=== PATIENT | female | born 1980 | race Caucasian/White ===

== ENCOUNTER 2016-11-23 12:08 | Emergency (ER) | payer SELFPAY ==
[~2016-11-23] VITALS: Ht 152.4 cm; Wt 57.0 kg
[~2016-11-23 12:08] MED LIST: ACYC1CAP16 PO; GABA100C4 PO; PROZ20CA11 PO; VIST25CA PO; ZOLP5TAB3 PO
[2016-11-23 12:13] VITALS: BP 150/93; PULSE 96; RESP 18; TEMP 98; O2SAT 99
[2016-11-23] MEDS ORDERED: SODIUM CHLOR 0.9% 1000 ML INJ 1,000 ML IV SCH ×2 (12:25)
--- NOTE | 2016-11-23 12:29 | PD ---
HPI Chief Complaint: Abdominal Pain Time Seen by Provider: 12:24 Travel History International Travel<30 days: No Contact w/Intl Traveler<30days: No Traveled to known affect area: No History of Present Illness HPI This 36-year-old female says she is having abdominal pain since yesterday. The pain she is having is located primarily in the right upper quadrant and the mid abdomen. She's been having vomiting. She's been having diarrhea. She says she always has diarrhea and worsening usual last day. She has a history of Crohn's disease for 7 years. She was diagnosed in [place]. She is not on any medications for the Crohn's disease. He also has a history of fibromyalgia. She has had a cholecystectomy and a hysterectomy PFS Past Medical History Depression: Yes Cancer: Yes (ENDOMETRIOSIS) Cardiovascular Problems: No Diminished Hearing: No Fibromyalgia: Yes (Dx 2014) Gastrointestinal Disorders: Yes GERD: Yes Genitourinary: Yes Headaches: Yes Immune Disorder: Yes (CHRONS) Kidney Stones: Yes Musculoskeletal: No Neurologic: Yes Respiratory: No Migraines: Yes Ulcer: Yes ?: Not Past Surgical History Abdominal Surgery: Yes (GALLBLADDER) Cholecystectomy: Yes Gynecologic Surgery: Yes (HYSTERECTOMY) Hysterectomy: Yes Oral Surgery: Yes (WISDOM TEETH) Other Surgery: Yes (CYST REMOVED RIGHT BREAST VIA LASER) Social History Alcohol Use: Yes (1 glass of Vodks per night x 1 year) Tobacco Use: Yes (08/16 PPD) Substance Use: No Allergies-Medications (Allergen,Severity, Reaction): Coded Allergies: No Known Allergies (Unverified , 11/23/16) Reported Meds & Prescriptions Reported Meds & Active Scripts Active No Active Prescriptions or Reported Medications Review of Systems General / Constitutional: No: Fever, Chills Eyes: No: Diploplia, Blurred Vision HENT: No: Headaches Cardiovascular: No: Chest Pain or Discomfort, Palpitations Respiratory: No: Cough, Shortness of Breath Gastrointestinal: Positive: Nausea, Vomiting, Diarrhea, Abdominal Pain Genitourinary: No: Frequency, Dysuria Musculoskeletal: No: Myalgias, Arthralgias Skin: No Rash Neurologic: No: Weakness, Dizziness Hematologic/Lymphatic: No: Easy Bruising Physical Exam Narrative GENERAL: Well-developed female SKIN: Focused skin assessment warm/dry. HEAD: Atraumatic. Normocephalic. EYES: Pupils equal and round. No scleral icterus. No injection or drainage. ENT: No nasal bleeding or discharge. Mucous membranes pink and moist. NECK: Trachea midline. No JVD. CARDIOVASCULAR: Regular rate and rhythm. No murmur appreciated. RESPIRATORY: No accessory muscle use. Clear to auscultation. Breath sounds equal bilaterally. GASTROINTESTINAL: Abdomen soft, there is mild distention. Bowel sounds present. No abnormal masses. No guarding or rigidity MUSCULOSKELETAL: No obvious deformities. No clubbing. No cyanosis. No edema. NEUROLOGICAL: Awake and alert. No obvious cranial nerve deficits. Motor grossly within normal limits. Normal speech. PSYCHIATRIC: Appropriate mood and affect; insight and judgment normal. Data Data Last Documented VS Vital Signs Date Time Temp Pulse Resp B/P Pulse Ox O2 Delivery O2 Flow Rate FiO2 11/23/16 12:35 16 98 Room Air 11/23/16 12:13 98.0 96 150/93 Orders Complete Blood Count With Diff (11/23/16 12:25) Comprehensive Metabolic Panel (11/23/16 12:25) Lipase (11/23/16 12:25) Urinalysis - C+S If Indicated (11/23/16 12:25) Ct Abd/Pel W Iv Contrast(Rout) (11/23/16 12:25) Iv Access Insert/Monitor (11/23/16 12:25) Ecg Monitoring (11/23/16 12:25) Oximetry (11/23/16 12:25) Hydromorphone Pf Inj (Dilaudid Pf Inj) (11/23/16 12:30) Ondansetron Inj (Zofran Inj) (11/23/16 12:30) Sodium Chlor 0.9% 1000 Ml Inj (Ns 1000 M (11/23/16 12:25) Sodium Chlor 0.9% 1000 Ml Inj (Ns 1000 M (11/23/16 12:25) Sodium Chloride 0.9% Flush (Ns Flush) (11/23/16 12:30) Iohexol 350 Inj (Omnipaque 350 Inj) (11/23/16 13:33) Labs Laboratory Tests Test 11/23/16 12:35 White Blood Count 5.6 TH/MM3 Red Blood Count 4.60 MIL/MM3 Hemoglobin 14.0 GM/DL Hematocrit 40.0 % Mean Corpuscular Volume 87.1 FL Mean Corpuscular Hemoglobin 30.4 PG Mean Corpuscular Hemoglobin 34.9 % Concent Red Cell Distribution Width 14.3 % Platelet Count 294 TH/MM3 Mean Platelet Volume 7.9 FL Neutrophils (%) (Auto) 71.3 % Lymphocytes (%) (Auto) 17.9 % Monocytes (%) (Auto) 8.8 % Eosinophils (%) (Auto) 1.6 % Basophils (%) (Auto) 0.4 % Neutrophils # (Auto) 4.0 TH/MM3 Lymphocytes # (Auto) 1.0 TH/MM3 Monocytes # (Auto) 0.5 TH/MM3 Eosinophils # (Auto) 0.1 TH/MM3 Basophils # (Auto) 0.0 TH/MM3 CBC Comment DIFF FINAL Differential Comment Urine Collection Type CLEAN CATCH Urine Color YELLOW Urine Turbidity SLIGHT Urine pH 5.5 Urine Specific Mcneil 1.033 Urine Protein TRACE mg/dL Urine Glucose (UA) NEG mg/dL Urine Ketones 40 mg/dL Urine Occult Blood NEG Urine Nitrite NEG Urine Bilirubin NEG Urine Leukocyte Esterase NEG Urine Squamous Epithelial > 8 /hpf Cells Urine Amorphous Sediment LARGE Microscopic Urinalysis Comment CULT NOT INDICATED Urine Collection Time 1235 Sodium Level 139 MEQ/L Potassium Level 4.0 MEQ/L Chloride Level 106 MEQ/L Carbon Dioxide Level 20.3 MEQ/L Anion Gap 13 MEQ/L Blood Urea Nitrogen 23 MG/DL Creatinine 0.74 MG/DL Estimat Glomerular Filtration 88 ML/MIN Rate Random Glucose 115 MG/DL Calcium Level 8.5 MG/DL Total Bilirubin 0.3 MG/DL Aspartate Amino Transf 106 U/L (AST/SGOT) Alanine Aminotransferase 145 U/L (ALT/SGPT) Alkaline Phosphatase 84 U/L Total Protein 7.3 GM/DL Albumin 3.9 GM/DL Lipase 122 U/L [facility] Medical Decision Making Medical Screen Exam Complete: Yes Emergency Medical Condition: Yes Medical Record Reviewed: Yes Differential Diagnosis Differential includes Crohn's disease, bowel obstruction, Narrative Course White count is normal. CT scan of the abdomen and pelvis shows no evidence of active inflammatory disease. There is hepatic steatosis. Impression is flare of Crohn's disease. She'll be given Solu-Medrol now and prescription for Medrol Dosepak. Diagnosis Primary Impression: Exacerbation of Crohn's disease Qualified Code: K50.90 - Exacerbation of Crohn's disease, without complications Scripts Ondansetron Odt (Zofran Odt)4 Mg Tab4 Mg SL Q6HR PRN (Nausea/Vomiting) #10 TAB Ref 0 Prov:Norman Ruggiero MD 11/23/16 Hydrocodone-Acetaminophen (Lortab)7.5-325 Mg Tab1 Tab PO Q4H PRN (PAIN) #30 TAB Ref 0 Prov:Norman Ruggiero MD 11/23/16 Methylprednisolone Dosepak (Medrol Dosepak)4 Mg Dspk4 Mg PO DIRECTED #1 DSPK Ref 0 Per Pharmacist direction Prov:Norman Ruggiero MD 11/23/16 Disposition: 01 DISCHARGE HOME Condition: Stable Norman Ruggiero MD Nov 23, 2016 12:29
[2016-11-23] MEDS ORDERED: HYDROmorphone HCL PF 2 MG/ML VIAL IVS ONE (12:30)
[2016-11-23] MEDS ORDERED: ONDANSETRON HCL 4 MG/2 ML VIAL IVP ONE (12:30)
[2016-11-23] MEDS ORDERED: SODIUM CHLORIDE 0.9% FLUSH 10 ML FLUSH IV FLUSH PRN (12:30)
[2016-11-23 12:35] VITALS: RESP 16; O2SAT 98
[2016-11-23 12:58] LABS: BASOPHIL % 0.4 % (0.0-2.0); EOSINOPHIL # 0.1 TH/MM3 (0-0.4); EOSINOPHIL % 1.6 % (0.0-4.0); HEMO FLAGS DIFF FINAL; LYMPH % 17.9 % (9.0-44.0); MEAN CELL VOLUME 87.1 FL (80.0-100.0); MEAN CORPUSCULAR HEMOGLOBIN 30.4 PG (27.0-34.0); MEAN CORPUSCULAR HGB CONC 34.9 % (32.0-36.0); MONO % 8.8 % (0.0-8.0); NEUT % 71.3 % (16.0-70.0); PLATELET COUNT 294 TH/MM3 (150-450); RED CELL DISTRIBUTION WIDTH 14.3 % (11.6-17.2); WHITE BLOOD COUNT 5.6 TH/MM3 (4.0-11.0)
[2016-11-23 13:03] LABS: BLOOD, URINE NEG (NEG); GLUCOSE,URINE NEG (NEG); KETONE, URINE 40 mg/dL (NEG); NITRITE,URINE NEG (NEG); PH, URINE 5.5 (5.0-8.5)
[2016-11-23 13:10] LABS: METHOD OF COLLECTION CLEAN CATCH; URINE COLOR YELLOW (YELLW/STRAW)
[2016-11-23 13:11] LABS: CHLORIDE 106 MEQ/L (98-107); SODIUM (NA) 139 MEQ/L (136-145)
[2016-11-23 13:12] LABS: COMMENT (UR) CULT NOT INDICATED; COMMENT2 (UR) MUCOUS PRESENT; CULTURE IF INDICATED CULT NOT INDICATED; SQUAMOUS EPITHELIAL CELL URINE > 8 /hpf (0-5)
[2016-11-23 13:15] LABS: ANION GAP 13 MEQ/L (5-15); BICARBONATE 20.3 MEQ/L (21.0-32.0); BLOOD UREA NITROGEN 23 MG/DL (7-18)
[2016-11-23 13:17] LABS: ALT (GPT) 145 U/L (10-53); AST (GOT) 106 U/L (15-37)
[2016-11-23 13:18] LABS: GLOMERULAR FILTRATION RATE 88 ML/MIN (>89)
[2016-11-23 13:19] LABS: TOTAL BILIRUBIN ADULT 0.3 MG/DL (0.2-1.0)
[2016-11-23 13:20] LABS: ALKALINE PHOSPHATASE 84 U/L (45-117)
[2016-11-23] MEDS ORDERED: IOHEXOL 350 MG/ML 10 ML VIAL (for RAD DIAG) IV ONE (13:33)
--- NOTE | 2016-11-23 13:47 | RADHPO ---
EXAM DATE/TIME: 11/23/2016 13:21 [facility] COMPARISON: CT ABDOMEN & PELVIS W CONTRAST, February 26, 2015, 23:33. INDICATIONS : Right upper quadrant pain. Nausea, vomiting and diarrhea. IV CONTRAST: 85 cc Omnipaque 350 (iohexol) IV ORAL CONTRAST: No oral contrast ingested. RADIATION DOSE: 6.75 CTDIvol (mGy) MEDICAL HISTORY : Gastroesophageal reflux disease. Crohns disease. Renal calculi.Endometriosis. SURGICAL HISTORY : Cholecystectomy. Hysterectomy. ENCOUNTER: Initial ACUITY: 1 day PAIN SCALE: 5/10 LOCATION: Right upper quadrant TECHNIQUE: Volumetric scanning of the abdomen and pelvis was performed. Using automated exposure control and ad justment of the mA and/or kV according to patient size, radiation dose was kept as low as reasonably achievable to obtain optimal diagnostic quality images. FINDINGS: LOWER LUNGS: The visualized lower lungs are clear. LIVER: Delivery is diffusely hypodense. There is no evidence of biliary duct dilatation or focal mass. Gallb ladder has been removed. SPLEEN: Normal size without lesion. PANCREAS: Within normal limits. KIDNEYS: Normal in size and shape. There is no mass, stone or hydronephrosis. ADRENAL GLANDS: Within normal limits. VASCULAR: There is no aortic aneurysm. BOWEL/MESENTERY: The stomach, small bowel, and colon demonstrate no acute abnormality. There are no active inflammator y changes. The appendix is normal in caliber and appearance. There is no free intraperitoneal air or fluid. ABDOMINAL WALL: Within normal limits. RETROPERITONEUM: There is no lymphadenopathy. BLADDER: No wall thickening or mass. REPRODUCTIVE: The uterus is been removed. There are no signs of pelvic or adnexal masses. INGUINAL: There is no lymphadenopathy or hernia. MUSCULOSKELETAL: Within normal limits for patient age. CONCLUSION: Diffusely hypodense liver characteristic of steatosis. Status post cholecystectomy and hysterectomy. No evidence of active inflammatory disease. Edgardo Miller MD on November 23, 2016 at 13:40 Board Certified Radiologist. This report was verified electronically.
[2016-11-23] MEDS ORDERED: methylPREDNISolone SOD SUCC 125 MG/2 ML VIAL IV PUSH ONE (14:00)
[2016-11-23] MEDS ORDERED: MEDR4PAK PO (14:01)
[2016-11-23] MEDS ORDERED: HYDR-3534 PO (14:02)
[2016-11-23] MEDS ORDERED: ZOFR4TAB3 SL (14:02)
[2016-11-23 14:14] VITALS: BP 147/81; PULSE 78; RESP 16; O2SAT 99
== END 2016-11-23 14:33 | disposition home or self-care (01) ==
LOC: PHED 12:08
DX: K50.90 Crohn's disease, unspecified, without complications (principal); F32.9 Major depressive disorder, single episode, unspecified; F17.210 Nicotine dependence, cigarettes, uncomplicated; Z87.442 Personal history of urinary calculi
CPT/HCPCS: 74177; 80053; 81001; 83690; 85025; 96361; 96374; 96375; 99284; J1170; J2405; J2930; J7030; Q9967